=== PATIENT | female | born 1950 | race Caucasian/White ===

== ENCOUNTER 2022-12-19 13:55 | Outpatient (REF) | payer MEDICARE, SELFPAY ==
--- NOTE | 2022-12-19 13:30 | TONG_PTH ---
PATIENT: Lara Farrell LOC: [facility] U#:[id number] AGE/SX: 72/F ROOM: RE12/19/[address]: Derek Diaz MD : 1950 BED: DIS: 12/19/2022 SPEC #: [id number] RECD: 12/19/22 14:42 STATUS: ELIZABETH RERafael #: [id number] ROSALVA: 12/19/22 13:[address]: Derek Diaz DEPT: Surgical Specimen RECD BY: Wanda Cruz ENTERED: 12/19/22 14:43 SP TYPE: CHIKIS DA SILVA DR: Anaya Kaplan Tissues: 1 - TONGUE BIOPSY Procedures: SPECIAL STAIN 2 GROSS AND MICRO LEVEL 4 Comments: [id number]
== END 2022-12-19 13:56 | disposition home or self-care (01) ==
LOC: LBN 13:55
PROVIDERS: PCP Internal Medicine; Visit Provider Otolaryngology
DX: K14.0 Glossitis (principal); K14.8 Other diseases of tongue; K12.1 Other forms of stomatitis; K14.6 Glossodynia
CPT/HCPCS: 88305; 88313

== ENCOUNTER 2023-01-14 16:32 | Outpatient (REF) | payer MEDICARE, SELFPAY ==
--- NOTE | 2023-01-14 15:40 | ORMUBX_PTH ---
PATIENT: Lara Farrell LOC: [facility] U#:[id number] AGE/SX: 72/F ROOM: RE01/14/[address]: Derek Diaz MD : 1950 BED: DIS: 01/14/2023 SPEC #: [id number] RECD: 01/15/23 10:21 STATUS: ELIZABETH REQ #: [id number] ROSALVA: 01/14/23 15:[address]: Derek Diaz DEPT: Surgical Specimen RECD BY: Wanda Cruz ENTERED: 01/15/23 10:25 SP TYPE: ORMUBX OTHR DR: Anaya Kaplan Tissues: 1 - MUCOSA, NOS Procedures: GROSS AND MICRO LEVEL 4 Comments: [id number] (IMMUNOFLUORESCENCE)
== END 2023-01-14 16:33 | disposition home or self-care (01) ==
LOC: LBN 16:32
PROVIDERS: PCP Internal Medicine; Visit Provider Otolaryngology
DX: K12.39 Other oral mucositis (ulcerative) (principal); L43.8 Other lichen planus
CPT/HCPCS: 88305

== ENCOUNTER → 2024-01-08 13:53 | Outpatient (BNVA) | payer MEDICARE, SELFPAY | PROVIDERS: PCP Family Medicine; Referring Provider Family Medicine; Visit Provider Physician Assistant Surgical | DX: J98.11 Atelectasis (principal); Z87.891 Personal history of nicotine dependence; J44.9 Chronic obstructive pulmonary disease, unspecified; I72.8 Aneurysm of other specified arteries | CPT/HCPCS: 99205 ==